=== PATIENT | male | born 1935 | race Caucasian/White ===

== ENCOUNTER 2016-11-30 11:11 | Emergency (ER) | payer MEDICARE ==
[~2016-11-30] VITALS: Ht 177.8 cm; Wt 95.5 kg
[~2016-11-30 11:11] MED LIST: LEVO750T9 PO; OMEP20TA24 PO; OSLT75C PO; WARF2.5T82 PO; WARF5TAB7 PO
[2016-11-30 11:15] VITALS: BP 142/86; PULSE 60; RESP 15; O2SAT 98
--- NOTE | 2016-11-30 13:57 | ED.REPORT ---
HPI-Hip/Pelvis Prob/Inj Date of Service Nov 30, 2016 ED Provider: Nella Robins History of Present Illness: no bm for 3 or 4 days. denies change in activity. frequent falls , 1 week ago fall and fall yesterday. both sides hurt. primary care is sajan. chronic sore on left leg. Nursing Notes Stated Complaint: IMPACTED BOWELS, HIP PAIN Chief Complaint: Multiple Trauma/Fall Nursing Notes Reviewed: Yes Allergies: Coded Allergies: cephalexin (Verified Allergy, Intermediate, rash, 11/30/16) lactose (Verified Adverse Reaction, Mild, INTOLERANCE, 11/30/16) Scheduled Levofloxacin (Levaquin) 750 Mg Tablet 750 MG PO DAILY Oseltamivir Phosphate (Tamiflu) 75 Mg Capsule 75 MG PO BID Warfarin Sodium (Warfarin Sodium) 2.5 Mg Tablet 2.5 MG PO Sundays Warfarin Sodium (Warfarin Sodium) 5 Mg Tablet 5 MG PO Wednesday-Wednesday Scheduled PRN Omeprazole Magnesium (Prilosec Otc) 20 Mg Tablet.dr 20 MG PO PRN Heartburn General Time Seen by Provider: 13:57 Chief Complaint Hip injury right, Hip injury left, Other (no BM for 3 to 4 days) Hx Obtained From: Patient Onset Occurred: 6 days ago Caused by: Accidental Past Medical History Past Medical History No prior history of heart disease PER OLD REPORTS: COPD Emphysema Hypertension Prior lower extremity DVT's, on coumadin Pulmonary embolism Venous insufficiency Peripheral arterial disease Left cataract Reports: Hypertension Past Surgical History PER OLD REPORTS: Left lower extremity: Incision and drainage and debridment, February 2013 Appendectomy Cholecystectomy Ventral hernia repair Vesectomy Prior incision and drainage of right index finger Smoking History Current Every Day Smoker Social History Alcohol Use: "Social" Drug Use: Denies drug use Other Social History: Local resident Occupation lives by self in a cabin No running water at present, pump malfunction, states is working on repair. 11/30/2016 Ambulatory Status Independent Review of Systems Basic Review of Systems Eyes: Vision NL, No discharge : No dysuria, No frequency Psychiatric: Normal thought content Physical Exam Initial Vital Signs Vital Signs (First) Date Time Temp Pulse Resp B/P Pulse Ox O2 Delivery O2 Flow Rate FiO2 11/30/16 11:15 37 60 15 142/86 98 Room Air Initial VS: Reviewed, Vital signs normal General/Constitutional: Well-developed, Well-nourished Head / Eyes: Atraumatic, Normocephalic, PERRL ENT: Mucous membranes moist, Conjunctiva normal, No scleral icterus Neck: Supple, Non-tender, Full range of motion Respiratory: Breath sounds normal, Clear to auscultation, No respiratory distress Cardiovascular: Regular rate & rhythm, Heart sounds normal, Intact distal pulses Abdomen / GI: Soft, Non-tender, No guarding, No rebound, No distention Back: No CVA tenderness Lymphatic: No lymphadenopathy Upper Extremities: Vascular intact, Neuro intact, No swelling, No tenderness Skin: Warm, Dry, No cyanosis Neurologic: Alert, Oriented, Nonfocal Psychiatric: Mood/affect normal, Behavior normal, Normal thought content Lower Extremity / Pelvis / MS: Atraumatic, Inspection NL, Full range of motion mild bilateral leg swelling General/Constitutional: Awake, Alert, No acute distress Head / Eyes: Atraumatic, Normocephalic, PERRL Respiratory / Chest: Atraumatic, Breath sounds NL, Breath sounds = bilat, No respiratory distress Cardiovascular: Heart rate NL, Regular rhythm, Heart sounds NL, No gallop Abdomen: Atraumatic, Soft, Non-tender, McBurney's non-tender Rectum / Perineum: Atraumatic, No gross blood Interpretation & Diagnostics Interpretation & Diagnostics: ROCEDURE: CT ABDOMEN AND PELVIS WITH CONTRAST ([id number]) INDICATIONS: ? blocking cancer, abscess, pain constipation TECHNIQUE: After the administration of intravenous contrast, 5 mm thick sections acquired from the diaphragm to the symphysis. 5 mm coronal and sagittal reformats were acquired. For radiation dose reduction, the following was used: automated exposure control, adjustment of mA and/or kV according to patient size. COMPARISON: None. FINDINGS: Image quality: Excellent. ABDOMEN: Lung bases: Lung bases are clear. Heart size is normal. Solid organs: Liver and spleen are normal in size and enhancement. Liver demonstrates prominent steatosis. Gallbladder has been murmur. Biliary system is non dilated. Pancreas enhances normally. No adrenal nodules. Kidneys demonstrate normal size and enhancement, without hydronephrosis. Peritoneum and bowel: Bowel loops demonstrate normal wall thickness and caliber. No free fluid or air. Mild to moderate scattered stool most prominent in the rectum. Nodes and vessels: No retroperitoneal or mesenteric adenopathy by size criteria. Aorta and inferior vena cava are normal in size. Miscellaneous: No ventral hernias. PELVIS: Genitourinary: Bladder wall thickness is normal. Miscellaneous: No inguinal hernias or adenopathy. Bones: No suspicious bony lesions. No vertebral body compression fractures. IMPRESSION: 1. Mild to moderate scattered stool most prominent within the rectal vault. No obstruction. 2. Hepatic steatosis. Dictated by: Alva Magana M.D. on 11/30/2016 at 17:16 Approved by: Alva Magana M.D. on 11/30/2016 at 17:18 Lab Results Interpretation Result Diagram: 11/30/16 1432 11/30/16 1432 Test 11/30/16 14:32 White Blood Count 8.1th/mm3 (3.8-10.1) Red Blood Count 4.14mil/mm3 (4.40-5.80) Hemoglobin 14.9g/dL (13.8-17.2) Hematocrit 41.1% (41.0-50.0) Mean Corpuscular Volume 99.3fL (81-100) Mean Corpuscular Hemoglobin 36.0pg (27.0-35.0) Mean Corpuscular Hemoglobin Concent 36.3% (32.0-37.0) Red Cell Distribution Width 13.6% (12.3-15.4) Platelet Count 137bil/L (150-400) Neutrophils (%) (Auto) 64.1% (40-74) Lymphocytes (%) (Auto) 24.7% (14-46) Monocytes (%) (Auto) 7.5% (4-12) Eosinophils (%) (Auto) 2.8% (0-5) Basophils (%) (Auto) 0.7% (0-3) Sodium Level 143mEq/L (134-144) Potassium Level 4.0mEq/L (3.5-5.2) Chloride Level 100mEq/L (97-108) Carbon Dioxide Level 25mmol/L (18-29) Blood Urea Nitrogen 20mg/dL (8-27) Creatinine 1.07mg/dL (0.76-1.27) Estimat Glomerular Filtration Rate 70mL/min (>59) Glucose Level 96mg/dL (60-99) Calcium Level 9.3mg/dL (8.5-10.1) Total Bilirubin 0.9mg/dL (0.0-1.2) Aspartate Amino Transf (AST/SGOT) 38U/L (0-50) Alanine Aminotransferase (ALT/SGPT) 20U/L (0-44) Alkaline Phosphatase 94U/L (25-160) Total Protein 7.8g/dL (6.4-8.4) Albumin 4.1g/dL (3.4-5.0) X-Ray Interpretation Xray Interpretation: PROCEDURE: X-RAY PELVIS WITH BILATERAL HIPS, 3 VIEWS INDICATIONS: fall, pain TECHNIQUE: AP pelvis with lateral view(s) of the bilateral hip(s). COMPARISON: None. FINDINGS: Bones: No fractures or dislocations. Pelvic ring appears intact. No suspicious bony lesions. There are mild to moderate degenerative changes of the included the lumbosacral spine and bilateral hips. Soft tissues: The visualized bowel gas pattern is normal. No suspicious soft tissue calcifications. Scattered vascular calcifications are noted. IMPRESSION: 1. No acute fracture of the bilateral hips. 2. Mild to moderate degenerative changes of the hip joints. Dictated by: Galindo Santillan M.D. on 11/30/2016 at 14:19 Approved by: Galindo Santillan M.D. on 11/30/2016 at 14:20 Re-Eval/Medical Decision Med Decision/Clinical Course 81 year old male presents to the ER for evualation of no BM for 4 to 5 days and bilateral hip pain after falling. X-ray is negative. CT of abd pelvis is negative for any structurally obstructions. Patient with relief after enema. No sign of fracture or obstruction. Discharge & Departure Impression: Primary Impression: Constipation Constipation type: unspecified constipation type Qualified Code: K59.00 - Constipation, unspecified Additional Impressions: Hip pain Laterality: bilateral Qualified Code: M25.551 - Pain in right hip Fall Disposition: Home Patient Instructions: Constipation (ED), Fall Prevention for Older Adults (ED) , High Fiber Diet (ED) Additional Instructions: Your labs are looking good. The CT does not show any blockage or structurally issue with the colon. It did show a large amount of stool in the rectal. That has been cleared with the enema. Need to increase fiber in your diet. A list of high fiber foods is provided. Popcorn is an excellent option. Please establish with primary care. Referrals: Louis Cage (PCP) EDSupervising Provider for APC: Mirza Chand MD copies to: Louis Cage Sue ARNP Nov 30, 2016 13:57
[2016-11-30 14:39] LABS: BASOPHILS % (AUTO) 0.7 % (0-3); EOSINOPHILS % (AUTO) 2.8 % (0-5); MONOCYTES % (AUTO) 7.5 % (4-12); Mean Corpuscular Volume 99.3 fL (81-100); NEUTROPHILS % (AUTO) 64.1 % (40-74); Platelet Count 137 bil/L (150-400)
[2016-11-30 14:47] VITALS: BP 156/68; PULSE 53; RESP 18; O2SAT 95
--- NOTE | 2016-11-30 15:21 | DRSVH ---
PROCEDURE: X-RAY PELVIS WITH BILATERAL HIPS, 3 VIEWS INDICATIONS: fall, pain TECHNIQUE: AP pelvis with lateral view(s) of the bilateral hip(s). COMPARISON: None. FINDINGS: Bones: No fractures or dislocations. Pelvic ring appears intact. No suspicious bony lesions. Ther e are mild to moderate degenerative changes of the included the lumbosacral spine and bilateral hips. Soft tissues: The visualized bowel gas pattern is normal. No suspicious soft tissue calcifications. Scattered vascular calcifications are noted. IMPRESSION: 1. No acute fracture of the bilateral hips. 2. Mild to moderate degenerative changes of the hip joints. Dictated by: Galindo Santillan M.D. on 11/30/2016 at 14:19 Approved by: Galindo Santillan M.D. on 11/30/2016 at 14:20
[2016-11-30 17:18] VITALS: BP 149/83; PULSE 57; RESP 18; O2SAT 97
--- NOTE | 2016-11-30 17:20 | DRSVH ---
PROCEDURE: CT ABDOMEN AND PELVIS WITH CONTRAST ([id number]) INDICATIONS: ? blocking cancer, abscess, pain constipation TECHNIQUE: After the administration of intravenous contrast, 5 mm thick sections acquired from the diaphragm to the symphysis. 5 mm coronal and sagittal reformats were acquired. For radiation dose reduction, the following was used: automated exposure control, adjustment of mA and/or kV according to patient siz e. COMPARISON: None. FINDINGS: Image quality: Excellent. ABDOMEN: Lung bases: Lung bases are clear. Heart size is normal. Solid organs: Liver and spleen are normal in size and enhancement. Liver demonstrates prominent garrett atosis. Gallbladder has been murmur. Biliary system is non dilated. Pancreas enhances normally. No adrenal nodules. Kidneys demonstrate normal size and enhancement, without hydronephrosis. Peritoneum and bowel: Bowel loops demonstrate normal wall thickness and caliber. No free fluid or a ir. Mild to moderate scattered stool most prominent in the rectum. Nodes and vessels: No retroperitoneal or mesenteric adenopathy by size criteria. Aorta and inferior vena cava are normal in size. Miscellaneous: No ventral hernias. PELVIS: Genitourinary: Bladder wall thickness is normal. Miscellaneous: No inguinal hernias or adenopathy. Bones: No suspicious bony lesions. No vertebral body compression fractures. IMPRESSION: 1. Mild to moderate scattered stool most prominent within the rectal vault. No obstruction. 2. Hepatic steatosis. Dictated by: Alva Magana M.D. on 11/30/2016 at 17:16 Approved by: Alva Magana M.D. on 11/30/2016 at 17:18
[2016-11-30 18:29] VITALS: BP 149/83; PULSE 57; RESP 18; O2SAT 97
== END 2016-11-30 18:29 | disposition home or self-care (01) ==
LOC: SED 11:11
DX: M25.551 Pain in right hip (principal); K59.00 Constipation, unspecified; W18.30XA Fall on same level, unspecified, initial encounter; Y93.01 Activity, walking, marching and hiking; Y99.8 Other external cause status; Y92.832 Beach as the place of occurrence of the external cause; I10 Essential (primary) hypertension; F17.290 Nicotine dependence, other tobacco product, uncomplicated; J44.9 Chronic obstructive pulmonary disease, unspecified; Z86.711 Personal history of pulmonary embolism; Z86.718 Personal history of other venous thrombosis and embolism; Z90.89 Acquired absence of other organs; Z90.49 Acquired absence of other specified parts of digestive tract; Z79.01 Long term (current) use of anticoagulants; Z88.1 Allergy status to other antibiotic agents
CPT/HCPCS: 36415; 73522; 74177; 80053; 85025; 99284; Q9967

== ENCOUNTER 2017-03-13 10:47 | Observation (INO) | payer MEDICARE ==
[~2017-03-13] VITALS: Ht 172.7 cm; Wt 83.1 kg
[2017-03-13 11:00] VITALS: BP 136/87; PULSE 0; PULSE 80; RESP 16; O2SAT 94
--- NOTE | 2017-03-13 11:57 | ED.REPORT ---
HPI-Extremity Problem Upper Date of Service Mar 13, 2017 ED Provider: Milagro Partida History of Present Illness: 81-year-old male here for left hand and wrist pain. 3 days ago he fell backwards and his lawn chair hitting his left hand and wrist against his wood-burning stove that was on. He did not sustain a burn. He had help getting up. Over the last 3 days his hand and wrist pain has increased. It is now swollen and erythematous. Pain with any sort of movement. He is on warfarin. He has had intermittent headaches that are short lived and not severe. No neck pain. Nursing Notes Stated Complaint: LEFT ARM PAIN/HEAD PAIN Chief Complaint: Multiple Trauma/Fall Nursing Notes Reviewed: Yes Allergies: Coded Allergies: cephalexin (Verified Allergy, Intermediate, rash, 03/13/17) lactose (Verified Adverse Reaction, Mild, INTOLERANCE, 03/13/17) Scheduled Hydrochlorothiazide (Hydrochlorothiazide) 25 Mg Tablet 25 MG PO DAILY Warfarin Sodium (Warfarin Sodium) 2.5 Mg Tablet 2.5 MG PO SuTh Warfarin Sodium (Warfarin Sodium) 5 Mg Tablet 5 MG PO [id number] General Time Seen by MD: 11:48 Chief Complaint Wrist injury left, Hand Injury left Hx Obtained From: Patient Arrived By: Walk-in Onset Occurred: 3 days ago Caused by: Fall on ground Location: : Hand left: Wrist left Severity: Current: Severe Severity: Maximum: Severe Associated with: Denies: Fever Pertinent Negative: Pt denies other symptoms Exacerbated by: Range of motion, Movement, Pronation, Supination Relieved by: Rest Similar Sx Previous: No Past Medical History Past Medical History No prior history of heart disease PER OLD REPORTS: COPD Emphysema Hypertension Prior lower extremity DVT's, on coumadin Pulmonary embolism Venous insufficiency Peripheral arterial disease Left cataract Reports: Hypertension Past Surgical History PER OLD REPORTS: Left lower extremity: Incision and drainage and debridment, February 2013 Appendectomy Cholecystectomy Ventral hernia repair Vesectomy Prior incision and drainage of right index finger Smoking History Current Every Day Smoker Social History Alcohol Use: "Social" Drug Use: Denies drug use Other Social History: Local resident Occupation lives by self in a cabin No running water at present, pump malfunction, states is working on repair. 11/30/2016 Ambulatory Status Independent Review of Systems Basic Review of Systems Eyes: Vision NL, No discharge ENT: Hearing NL, No pain, No nasal congestion, No pharyngeal pain Respiratory: No shortness of breath, No cough, No wheeze Cardiovascular: No chest pain, No dyspnea on exertion, No orthopnea, No parox noct dyspnea, No palpitations GI: No abdominal pain, No anorexia, No nausea, No vomiting Constitutional: Denies: Fatigue, Fever Musculoskeletal: Reports: Extremity pain, Extremity swelling Neurologic: Reports: Headache, Denies: Dizziness, Lightheaded, Slurred speech, Weakness Complete sys rev & neg: except as marked. Eyes: Denies: Blurred bilateral Physical Exam Initial Vital Signs Vital Signs (First) Date Time Temp Pulse Resp B/P Pulse Ox O2 Delivery O2 Flow Rate FiO2 03/13/17 11:00 37 80 16 136/87 94 Room Air Initial VS: Reviewed, Vital signs normal General/Constitutional: Well-developed, Well-nourished Head / Eyes: Atraumatic, Normocephalic, PERRL ENT: Mucous membranes moist, Conjunctiva normal, No scleral icterus Respiratory: Breath sounds normal, Clear to auscultation, No respiratory distress Cardiovascular: Regular rate & rhythm, Heart sounds normal, Intact distal pulses Neurologic: Alert, Oriented, Nonfocal Psychiatric: Mood/affect normal, Behavior normal, Normal thought content Neck: Supple, Full range of motion, No swelling, Non-tender Left hand and wrist grossly swollen. Erythema noted to fifth digit, fifth metacarpal and distal ulna and wrist. Pain with flexion of 5th digit. Swelling more severe and noted here. Pain with even light palpation of this area. Patient has Limited ROM of wrist r/t pain. No pain or tenderness on the rest of forearm, elbow, humerus, shoulder. No obvious deformity Color / Condition: Positive: Erythema localized Interpretation & Diagnostics Lab Results Interpretation Result Diagram: 03/13/17 1336 03/13/17 1336 Test 03/13/17 13:36 White Blood Count 12.9th/mm3 (3.8-10.1) Red Blood Count 4.19mil/mm3 (4.40-5.80) Hemoglobin 14.7g/dL (13.8-17.2) Hematocrit 41.2% (41.0-50.0) Mean Corpuscular Volume 98.3fL (81-100) Mean Corpuscular Hemoglobin 35.1pg (27.0-35.0) Mean Corpuscular Hemoglobin Concent 35.7% (32.0-37.0) Red Cell Distribution Width 13.2% (12.3-15.4) Platelet Count 213bil/L (150-400) Neutrophils (%) (Auto) 80.4% (40-74) Lymphocytes (%) (Auto) 10.6% (14-46) Monocytes (%) (Auto) 7.7% (4-12) Eosinophils (%) (Auto) 0.5% (0-5) Basophils (%) (Auto) 0.5% (0-3) Erythrocyte Sedimentation Rate 75mm/hr (0-30) Prothrombin Time 34.3sec (8.1-12.5) Prothromb Time International Ratio 3.13ratio Sodium Level 137mEq/L (134-144) Potassium Level 3.2mEq/L (3.5-5.2) Chloride Level 92mEq/L (97-108) Carbon Dioxide Level 27mmol/L (18-29) Blood Urea Nitrogen 14mg/dL (8-27) Creatinine 0.74mg/dL (0.76-1.27) Estimat Glomerular Filtration Rate 107mL/min (>59) Glucose Level 117mg/dL (60-99) Lactic Acid Level 1.2mmol/L (0.4-2.0) Calcium Level 8.6mg/dL (8.5-10.1) Total Bilirubin 1.3mg/dL (0.0-1.2) Aspartate Amino Transf (AST/SGOT) 18U/L (0-50) Alanine Aminotransferase (ALT/SGPT) 8U/L (0-44) Alkaline Phosphatase 79U/L (25-160) C-Reactive Protein 14.3mg/dL (0.0-0.5) Total Protein 7.4g/dL (6.4-8.4) Albumin 3.5g/dL (3.4-5.0) X-Ray Interpretation Xray Interpretation: PROCEDURE: X-RAY LEFT WRIST COMPLETE, MINIMUM THREE VIEWS ([id number]) INDICATIONS: trauma , fall TECHNIQUE: 4 views of the wrist were acquired. COMPARISON: [facility], CR, XR HAND 3VW LT, 03/13/2017, 11:42. FINDINGS: Bones: No fractures or dislocations. No suspicious bony lesions. Moderate to moderately severe osteoarthritis is present at the base of the first metacarpal Scaphoid view: No trauma to the scaphoid is seen. Soft tissues: No suspicious soft tissue calcifications. Small vessel calcifications suggest long-standing diabetes. IMPRESSION: No acute trauma found. 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 Small vessel calcifications along the radial artery are quite prominent and may indicate presence of long-standing diabetes. Study Performed: PROCEDURE: X-RAY LEFT HAND, MINIMUM THREE VIEWS ([id number]) INDICATIONS: trauma , fall TECHNIQUE: 4 views of the hand(s) acquired. COMPARISON: None. FINDINGS: Bones: No fractures or dislocations. Carpal bones are normally aligned. No suspicious bony lesions. Soft tissues: No suspicious soft tissue calcifications. IMPRESSION: Arthritic change, age related, no acute trauma found. No erosive arthritis is seen. Re-Eval/Medical Decision Med Decision/Clinical Course 1255- no obvious fx on xray 1334- Dr Merino ORtho returned page, will admit to hospitalist. NPO midnight. 1513- hospitalist consulted, will admit, added zosyn Discharge & Departure Shift Change Sign-Out Laboratory Evaluation: Lab evaluation discussed Procedures: Results discussed Response to Therapy: Improved Impression: Primary Impression: Tenosynovitis of finger and hand Disposition: ADMITTED TO HOSPITAL Transfer Accepted at: 15:10 Spoke with: Hospitalist Patient Status: Stable Discharge Condition All VS Reviewed: Yes Condition: Stable Referrals: Louis Cage (PCP) Sukhdeep Merino Andriy MD EDSupervising Provider for APC: Anival Nicole MD Attending Statement I discussed case with DREW Partida. I evaluated the patient independently and agree with plan as above. In brief, he has a left hand tenosynovitis with streaking lymphangitis. He will be admitted to the hospital with orthopedics consultation. copies to: Anival Nicole MD, Linnea K ARNP Mar 13, 2017 11:57 Anival Nicole MD Mar 13, 2017 18:33
--- NOTE | 2017-03-13 12:42 | DRSVH ---
PROCEDURE: X-RAY LEFT HAND, MINIMUM THREE VIEWS ([id number]) INDICATIONS: trauma , fall TECHNIQUE: 4 views of the hand(s) acquired. COMPARISON: None. FINDINGS: Bones: No fractures or dislocations. Carpal bones are normally aligned. No suspicious bony lesions . Soft tissues: No suspicious soft tissue calcifications. IMPRESSION: Arthritic change, age related, no acute trauma found. No erosive arthritis is seen. Dictated by: Eduardo Bajwa M.D. on 03/13/2017 at 12:40 Approved by: Eduardo Bajwa M.D. on 03/13/2017 at 12:41
--- NOTE | 2017-03-13 12:44 | DRSVH ---
PROCEDURE: X-RAY LEFT WRIST COMPLETE, MINIMUM THREE VIEWS ([id number]) INDICATIONS: trauma , fall TECHNIQUE: 4 views of the wrist were acquired. COMPARISON: [facility], CR, XR HAND 3VW LT, 03/13/2017, 11:42. FINDINGS: Bones: No fractures or dislocations. No suspicious bony lesions. Moderate to moderately severe ost eoarthritis is present at the base of the first metacarpal Scaphoid view: No trauma to the scaphoid is seen. Soft tissues: No suspicious soft tissue calcifications. Small vessel calcifications suggest long-st anding diabetes. IMPRESSION: No acute trauma found. 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 Small vessel calcifications along the radial artery are quite prominent and ma y indicate presence of long-standing diabetes. Dictated by: Eduardo Bajwa M.D. on 03/13/2017 at 12:41 Approved by: Eduardo Bajwa M.D. on 03/13/2017 at 12:42
[2017-03-13] MEDS ORDERED: Vancomycin Dose per Pharmacist XX SCH ×2 (13:35→15:35)
[2017-03-13] MEDS ORDERED: Vancomycin Inj 1,500 MG in 0.9% Sodium Chloride 500 ML IV ONE (13:50)
[2017-03-13 14:36] LABS: BASOPHILS % (AUTO) 0.5 % (0-3); EOSINOPHILS % (AUTO) 0.5 % (0-5); MONOCYTES % (AUTO) 7.7 % (4-12); Mean Corpuscular Hemoglobin 35.1 pg (27.0-35.0); Mean Corpuscular Volume 98.3 fL (81-100); NEUTROPHILS % (AUTO) 80.4 % (40-74); Platelet Count 213 bil/L (150-400)
[2017-03-13 14:40] VITALS: BP 129/82; PULSE 80; RESP 14; O2SAT 94
[2017-03-13] MEDS ORDERED: HYDROcodone-APAP 5-325 mg Tablet PO ONE (14:45)
[2017-03-13 15:12] LABS: INR 3.13 ratio
[2017-03-13] MEDS ORDERED: Piperacillin-Tazo 3.375 Gm Inj 3.375 GM in Dextrose 5% Minibag Plus 50 ML IV ONE (15:15)
[2017-03-13] MEDS ORDERED: Ondansetron 2 mg/mL 2 mL Inj IVPUSH PRN (15:20)
[2017-03-13] MEDS ORDERED: Alum-Mag Hydrox-Simeth 30 mL Suspension PO PRN (15:20)
[2017-03-13] MEDS ORDERED: HYDROcodone-APAP 5-325 mg Tablet PO PRN (15:20)
[2017-03-13] MEDS ORDERED: Polyethylene Glycol (PEG) 17 Gm Powder PO PRN (15:20)
--- NOTE | 2017-03-13 15:30 | PCM.HPMED ---
Subjective Date of Service Mar 13, 2017 Primary Provider: Admitting Physician: Lazaro Harkins MD Primary Care Physician: Louis Cage Attending Physician: Lazaro Harkins MD Chief Complaint: Left hand edema and erythema History of Present Illness: 81 yo M with PMH of PE/DVT, on Coumadin, PAD, HTN, COPD, GERD presented to ED with left wrist and finger erythema,edema. Patient fell 3 days ago hitting his left hand and wrist against his wood-burning stove that was on. He did not sustain a burn. Over the last 3 days edema and erythema, pain has been getting worse. Mack came to ED. He was diagnosed with Cellulitis, possible tenosynoivitis . He was started on Vancomycin/Zosyn. Orthopedic surgeon was consulted. Review of Systems: REVIEW OF SYSTEMS: GENERAL: no malaise, no fevers., SEE HPI HEENT: Negative for frequent or significant headaches All other reviewed and negative other than HPI. Allergies Coded Allergies: cephalexin (Verified Allergy, Intermediate, rash, 03/13/17) lactose (Verified Adverse Reaction, Mild, INTOLERANCE, 03/13/17) PMH Social History Hx Alcohol Use: Yes (4 drinks daily- whiskey) Hx Substance Use: No Hx Tobacco Use: Yes Smoking Status: Current Every Day Smoker Exam Vital Signs Vital Sign - Last Date Time Temp Pulse Resp B/P Pulse Ox O2 Delivery O2 Flow Rate FiO2 03/13/17 14:40 80 14 129/82 94 Room Air 03/13/17 11:00 37 Exam GENERAL: Alert, not in distress, cooperative HEAD: atraumatic, normocephalic, no bruises. EYES: ESTELITA, EOMI, anicteric, able to fully open and close eyelids SKIN: Skin color normal, turgor normal. No visible rashes or lesions. EAR, NOSE, MOUTH, THROAT: Lips, oral mucosa, tongue gums, oropharynx are moist , pink, no lesions. Ears normal appearance, no lesions. NECK: no jugulovenous distention; supple ROM normal. RESPIRATORY: Lungs clear to auscultation. Good diaphragmatic excursion. CARDIAC: normal S1 and S2; no rubs, murmurs, or gallops; regular rate and rhythm ABDOMEN: Abdomen soft, non-tender. BS normal. No masses or organomegaly. MUSCULOSKELETAL: ROM full, muscles are not tender EXTREMITIES: no pitting edema in LE, no new deformities or skin discoloration. Left hand edema and erythema present NEURO: Alert, oriented X 3, Sensation grossly intact., Cranial nerves II-XII intact, Grossly normal motor function. PULSES: 2+ radial, 2+ carotid REVIEW OF SYSTEMS: GENERAL: no malaise, no fevers., SEE HPI HEENT: Negative for frequent or significant headaches All other reviewed and negative other than HPI. Lab and Diagnostics Result Diagram: 03/13/17 1336 X-Rays, CTs and MRIs PROCEDURE: X-RAY LEFT HAND, MINIMUM THREE VIEWS ([id number]) INDICATIONS: trauma , fall TECHNIQUE: 4 views of the hand(s) acquired. COMPARISON: None. FINDINGS: Bones: No fractures or dislocations. Carpal bones are normally aligned. No suspicious bony lesions. Soft tissues: No suspicious soft tissue calcifications. IMPRESSION: Arthritic change, age related, no acute trauma found. No erosive arthritis is seen. PROCEDURE: X-RAY LEFT WRIST COMPLETE, MINIMUM THREE VIEWS ([id number]) INDICATIONS: trauma , fall TECHNIQUE: 4 views of the wrist were acquired. COMPARISON: [facility], CR, XR HAND 3VW LT, 03/13/2017, 11:42. FINDINGS: Bones: No fractures or dislocations. No suspicious bony lesions. Moderate to moderately severe osteoarthritis is present at the base of the first metacarpal Scaphoid view: No trauma to the scaphoid is seen. Soft tissues: No suspicious soft tissue calcifications. Small vessel calcifications suggest long-standing diabetes. IMPRESSION: No acute trauma found. 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 Small vessel calcifications along the radial artery are quite prominent and may indicate presence of long- standing diabetes. Assessment & Plan 81 yo M with PMH of PE/DVT, on Coumadin, PAD, HTN, COPD, GERD presented to ED with left wrist and finger erythema,edema. Patient fell 3 days ago hitting his left hand and wrist against his wood-burning stove that was on. He did not sustain a burn. Over the last 3 days edema and erythema, pain has been getting worse. Mack came to ED. He was diagnosed with Cellulitis, possible tenosynoivitis . He was started on Vancomycin/Zosyn. Orthopedic surgeon was consulted. Possible Acute Left hand cellulites, possible tenosynovitis - Orthopedic surgergeon Dr. Merino consulted from ED - Continue with vancomycin/Zosyn - Nothing by mouth after midnight History of PE and DVT - Patient is on Coumadin, is aware of risks of severe bleeding - Monitor INR daily, adjust Coumadin daily, hold today secondary for possible surgery tomorrow Hypertension - Stable - Hold BP meds COPD - Stable - Continue his home medications GERD - Stable - Continue with home medications DVT PROPHYLAXIS: Coumadin Code status: Disposition: discharge after patient improves. Plan of care discussed with ED physician; Labs, radiology tests reviewed. Plan of care, medication side effects, home medication, diagnostic procedures and available alternatives were discussed and reviewed with patient. All questions answered. Patient verbalized understanding, approved and agreed to plan of care. Lazaro Harkins MD Mar 13, 2017 15:30
[2017-03-13] MEDS ORDERED: levoFLOXacin 750 mg Tablet PO SCH (15:35)
--- NOTE | 2017-03-13 15:37 | NUR ---
Admit Pt admitted via stretcher from ED at 1537. Report provided by Teodora Black RN. Pt stable, VSS. Transferred with SBA to bed. Oriented to room. Belongings placed in cabinet. assessed pt at bedside. Admit nurse completing admit. WCTM.
[2017-03-13 15:50] VITALS: BP 114/77; PULSE 82; RESP 16; O2SAT 94
[2017-03-13] MEDS ORDERED: WARF2.5T82 PO (16:15)
[2017-03-13] MEDS ORDERED: WARF5TAB7 PO (16:15)
[2017-03-13] MEDS ORDERED: HYDR25TA4 PO (16:16)
[2017-03-13] MEDS ORDERED: Indomethacin 25 mg Capsule PO SCH (17:30)
--- NOTE | 2017-03-13 18:25 | NUR ---
lab notified of K of 3.2, will determine need for replacement
--- NOTE | 2017-03-13 18:28 | CONS ---
[address] [address] CONSULTATION REPORT PATIENT: FARNAZ CARO : 1935 MR#: [id number] ADMIT: 03/13/2017 JOB ID: [id number] DATE OF SERVICE: 03/13/2017 CHIEF COMPLAINT: Left small finger pain and swelling. HISTORY OF PRESENT ILLNESS: This is an 81-year-old, [id number] male, who presents with a 3-day history of the above complaints. He denies any specific direct trauma to the small finger. He states he was sitting on a plastic chair [place] when the chair broke and he fell and braced himself with his hands but states that the fall was not very high and it did not have any pain at that time. The following day was when he started noticing swelling to the small finger as well as erythema. He developed progressive pain and thus presented today to the emergency department. He does state that he had similar symptoms to his right hand and index finger 20 years ago without any preceding trauma and did undergo an incision and drainage at that time. He currently denies any constitutional symptoms including any fever, sweats, chills. He states he has had a normal appetite as well as normal bowel and bladder function. He denies any nausea or vomiting. He denies any paresthesias to the left hand. He denies any other associated symptoms or injuries. PAST MEDICAL HISTORY: DVTs, hypertension. PAST SURGICAL HISTORY: Appendectomy and cholecystectomy. Hernia repair. FAMILY HISTORY: Noncontributory. SOCIAL HISTORY: The patient currently lives at home by himself. He drinks four alcoholic drinks consisting of whiskey and coke a day. Smokes two cigars a day and denies any illicit drug use. MEDICATIONS: Please see electronic medical record for full list of patient's medications. ALLERGIES: Listed as: 1. KEFLEX. 2. LACTOSE. Although the patient is unsure why it is listed that he has a Keflex allergy. REVIEW OF SYSTEMS: The patient denies any fevers, sweats, chills, chest pain, shortness of breath, nausea, vomiting, diarrhea. Complains mainly of left hand swelling and pain as described in the history of present illness. PHYSICAL EXAM: Vitals: Demonstrate at 3:50 p.m. an elevated temp of 37.7 degrees Celsius. General: The patient is alert, oriented, in no apparent distress. HEENT: Normocephalic, atraumatic. Extraocular movements intact. Nares patent. Lungs: No audible wheeze or signs of respiratory distress. Neuro: Cranial nerves 2-12 are intact. Extremities: On gross observation of the patient's left hand, there are no open wounds or abrasions. There is some erythema dorsally to the small finger proximal phalanx that extends from the metacarpophalangeal joint to the proximal interphalangeal joint. There is a mild amount of swelling to the dorsum of the small finger as well as the hand without any palpable fluctuance. Fingers are well perfused, with brisk capillary refill and completely intact sensation. The patient is able to fully extend the fingers and can demonstrate a near full fist but has stiffness with the small finger into flexion. There is very minimal tenderness to palpation along the volar flexor tendon sheath of the small finger or tenderness dorsally overlying the proximal phalanx. DIAGNOSTIC STUDIES: Labs obtained at admission demonstrate a white count of 12.9, elevated ESR of 75, and an elevated CRP of 14.3. Three views of the patient's left hand were obtained today in the emergency department as well as three views of the wrist. Demonstrates evidence of severe 1st CMC arthritis, mild STT arthritis and DRUJ arthritis and moderate diffuse IP arthritis of the fingers. There is also calcification appreciable to the radial artery. IMPRESSION: Left hand and small finger cellulitis with possible underlying gout. PLAN: Discussed with the patient his diagnosis. He does have a history of gout after further questioning but states that he has had it mainly for his feet. Never has had any other issues except for the feet. He denies having any gout to the fingers. He is not on any maintenance type of medications for gout as he only gets it very intermittently. We will observe the patient over the evening and have him continue with IV antibiotics. I will also initiate anti-inflammatories consisting of indomethacin. He will be made n.p.o. at midnight and I will re-evaluate in the morning to see if an incision and drainage will be needed. We will also obtain a serum uric acid level.
[2017-03-13] MEDS ORDERED: Potassium Chloride 20 mEq SR Tablet PO ONE (18:30)
[2017-03-13] MEDS ORDERED: .Epic Conversion Completed XX PRN (19:10)
[2017-03-13 20:11] LABS: APPEARANCE,URINE CLEAR (CLEAR,HAZY); COLOR,URINE DARK YELLOW (YELLOW); OCCULT BLOOD,URINE TRACE (NEGATIVE)
[2017-03-13 20:30] VITALS: BP 129/72; PULSE 66; RESP 16; O2SAT 94
[2017-03-13] MEDS ORDERED: Piperacillin-Tazo 3.375 Gm Inj 3.375 GM in Dextrose 5% Minibag Plus 50 ML IV SCH (22:00)
[2017-03-14] MEDS ORDERED: Vancomycin 1 Gm/200 mL NS Premix IV SCH (02:00)
[2017-03-15] MEDS ORDERED: Vancomycin Serum Trough XX ONE (13:00)
== END 2017-03-14 01:32 | disposition admitted as inpatient to this hospital (09) ==
LOC: SED 10:47 → MOC 14:49
PROVIDERS: ADMIT Internal Medicine; ATTEND Internal Medicine
DX: R69 Illness, unspecified (principal)